=== PATIENT | female | born 1995 | race Caucasian/White ===

== ENCOUNTER → 2023-12-26 12:59 | Outpatient (REF) | payer OTHER, SELFPAY | LOC: RAD 12:59 | PROVIDERS: ATTENDING PHYSICIAN Nurse Practitioner Family | DX: E28.2 Polycystic ovarian syndrome (principal) | CPT/HCPCS: 76830 ==

== ENCOUNTER → 2024-02-26 10:54 | Outpatient (REF) | payer OTHER, SELFPAY ==
[2024-02-28 09:27] LABS: Quantiferon Mitogen minus NIL 9.95 IU/mL; Quantiferon NIL 0.05 IU/mL; Quantiferon Plus TB1 minus NIL 0.06 IU/mL (<=0.34); Quantiferon Plus TB2 minus NIL 0.04 IU/mL (<=0.34); Quantiferon TB Gold Plus Negative (Negative)
== END ==
LOC: REG 10:54
PROVIDERS: ATTENDING PHYSICIAN Nurse Practitioner Family
DX: Z11.1 Encounter for screening for respiratory tuberculosis (principal)
CPT/HCPCS: 36415; 86480